=== PATIENT | male | born 1970 | race Caucasian/White ===

== ENCOUNTER 2019-06-17 09:09 | Emergency (ER) | payer OTHER, SELFPAY ==
[2019-06-17 09:10] VITALS: BP 127/84; PULSE 96; RESP 16; TEMP 36.3; O2SAT 98
--- NOTE | 2019-06-17 09:18 | ED.GENADULT ---
HPI - General Adult General Chief complaint: Upper Respiratory Infection Stated complaint: COUGH/CONGESTION Time Seen by Provider: 06/17/19 09:22 Source: patient Mode of arrival: ambulatory Limitations: no limitations History of Present Illness HPI narrative: 48-year-old male patient presents to the [facility] with complaints of cold symptoms that started about 3 days ago. Patient states he did have a low-grade fever about 99 on the first day but no fever since then. Patient states that he did get a flu shot this year. Patient states he has had some nasal drainage, nasal congestion, drainage to the back of the throat and a slight cough. Denies any chest pain, shortness of breath. Denies any ear pain or sore throat. Denies any abdominal pain, nausea, vomiting or diarrhea. Patient states he has tried some [id number] daytime cold and sinus medication for symptoms so far. Related Data Home Medications Medication Instructions Recorded Confirmed No Home Medications 06/17/19 06/17/19 Allergies Allergy/AdvReac Type Severity Reaction Status Date / Time No Known Allergies Allergy Unverified 10/29/15 15:55 Review of Systems Review of Systems: Narrative: CONSTITUTIONAL: Positive low-grade fever, denies chills, or sweats. EYES: Denies visual changes, redness, or discharge. ENT: Positive rhinorrhea, congestion, denies sore throat, or otalgia. CARDIOVASCULAR: Denies chest pain, palpitations, or edema. RESPIRATORY: Positive cough denies dyspnea. GASTROINTESTINAL: Denies abdominal pain, nausea, vomiting, or diarrhea. GENITOURINARY: Denies dysuria or hematuria. SKIN: Denies rash or itching. MUSCULOSKELETAL: Denies back pain, joint pain, or myalgia. NEUROLOGIC: Denies headache, numbness, or weakness. PSYCHIATRIC: Denies anxiety or depression. PMFSH Comments At the time of my signature I agree with nursing past medical history, surgical, social, and family history. There is no relevant family history pertinent to the presenting complaint. Exam Narrative: Exam Narrative: GENERAL: Well-appearing, well-nourished, and in no acute distress. HEAD: Normocephalic, atraumatic. EYES: PERRLA and EOMI. ENT: Nares with erythema and edema noted bilaterally, no rhinorrhea or epistaxis. Mucous membranes moist. Posterior pharynx with some postnasal drip but no tonsil enlargement, no exudates or lesions present. Bilateral TMs are clear with no erythema or foreign bodies in the canal. NECK: Supple. No lymphadenopathy CHEST: Clear to auscultation. No respiratory distress. HEART: Regular rate and rhythm. No murmur heard. Normal peripheral pulses. ABDOMEN: Soft, nontender, nondistended, normal active bowel sounds. EXTREMITIES: Normal range of motion. No edema. SKIN: Warm, dry, no rash. NEURO: No focal deficits. Alert and oriented x3. Course Vital Signs Vital signs: Vital Signs Temperature 36.3 C L 06/17/19 09:10 Pulse Rate 96 06/17/19 09:10 Respiratory Rate 16 06/17/19 09:10 Blood Pressure 127/84 06/17/19 09:10 Pulse Oximetry 98 06/17/19 09:10 Temperature 36.3 C L 06/17/19 09:10 Pulse Rate 96 06/17/19 09:10 Respiratory Rate 16 06/17/19 09:10 Blood Pressure 127/84 06/17/19 09:10 Pulse Oximetry 98 06/17/19 09:10 Vital signs reviewed. Medical Decision Making Differential Diagnosis Differential Diagnosis: Differential diagnosis: Allergic rhinitis, chronic sinusitis, tonsillitis, acute sinusitis, infectious mononucleosis, seasonal influenza, pertussis, diphtheria, meningococcal disease, viral syndrome, viral bronchitis, RSV. Discussed with patient that this is most likely viral and since his symptoms have only been going on for 3 days he does not need an antibiotic at this time. Discussed with patient he can continue taking [id number] cold and sinus medications deftly would recommend antihistamine something such as Zyrtec, Claritin or Azalea as well as a Flonase to help with the postnasal drip and d
== END 2019-06-17 09:41 | disposition home or self-care (01) ==
PROVIDERS: Emergency Provider Nurse Practitioner Family; PCP Internal Medicine
DX: J06.9 Acute upper respiratory infection, unspecified (principal)
CPT/HCPCS: 99201; G0463